=== PATIENT | female | born 1995 | race Two or more races ===

== ENCOUNTER 2022-04-08 23:23 | Emergency (ER) | payer OTHER ==
[~2022-04-08] VITALS: Ht 170.2 cm; Wt 65.8 kg
[2022-04-08] MEDS ORDERED: ANTICONCEPTIVAS (23:36)
[2022-04-09] MEDS ORDERED: INTESTINEX680 M1 PO (02:12)
[2022-04-09] MEDS ORDERED: NAPROXEN375 MG PO (02:12)
[2022-04-09] MEDS ORDERED: AMOX-CLAV 875-1 EACH PO (02:12)
== END 2022-04-09 03:47 | disposition home or self-care (01) ==
LOC: ER 23:23
DX: L03.115 Cellulitis of right lower limb (principal)